=== PATIENT | female | born 1955 | race Caucasian/White ===

== ENCOUNTER 2021-09-02 15:20 | Inpatient (IN) | payer OTHER ==
[~2021-09-02] VITALS: Ht 172.7 cm; Wt 75.3 kg
[2021-09-02 16:00] VITALS: BP 117/68
[2021-09-02] MEDS ORDERED: ZOLPIDEM TARTRATE 5 MG TABLET PO PRN (16:00)
[2021-09-02] MEDS ORDERED: MAGNESIUM HYDROXIDE 30 ML UDC PO PRN (16:00)
[2021-09-02] MEDS ORDERED: ACETAMINOPHEN 325 MG TABLET PO PRN (16:00)
[2021-09-02] MEDS ORDERED: MAG HYDROX/AL HYDROX/SIMETH 30 ML UDC PO PRN (16:00)
[2021-09-02] MEDS ORDERED: LORAZEPAM 0.5 MG TABLET PO PRN (16:00)
--- NOTE | 2021-09-02 16:30 | NUR ---
RN-ADMISSION NOTES ADMITTED A 65 Y.O FEMALE PATIENT FROM [facility]. PATIENT ON 5150 FOR DTS AND GD ADULT. UPON FACE TO FACE ASSESSMENT PATIENT IS ALERT TO NAME ONLY,POOR HISTORIAN MOST OF THE MEDICAL INFORMATION WAS GIVEN BY HER DTR.PATIENT WAS CALM WITH FLAT AFFECT DENIES SI/HI,NO AVH DURING THE ADMISSION PROCESS.PATIENT ORIENTED IN THE UNIT AND UNIT POLICIES. WALKER WAS PROVIDED FOR HER AND INSTRUCTED TO USE TO AMBULATE TO PREVENT FROM FALLS. PATIENT IS UNDER DR. CRANE ( PSYCHIATRIST) AND CAYETANO MILLER ( SUPERVISOR F[employer]IL[employer]ER PROCESSING ) BOTH WAS MADE FINE OF THE ADMISSION. PATIENT REFUSED TO SIGN ADMISSION PAPERS. OFFERED FLU VACCINE BUT PATIENT STATED" I HAD FLU VACCINE 3 WEEKS AGO". FULL BODY ASSESSMENT AND MRSA SWAB DONE AND SEND TO THE LAB.PATIENT WAS PATIENT'S DAUGHTER BRUCE CALIX [phone] MADE AWARE OF THE ADMISSION,PER DTR PATIENT HAD COVID VACCINE 1ST AND 2ND DOSE LAST MAY AND 2020.PATIENT LYING IN BED CALM,NO ACUTE DISTRESS NOTED. WILL CONT. MONITORING FOR SAFETY AND BEHAVIOR Q15 MINS. WILL ENDORSE TO INCOMING NURSE FOR CONTINUITY OF CARE AND ADMISSION .
[2021-09-02] MEDS ORDERED: OLAN20TA3 PO (16:42)
[2021-09-02] MEDS ORDERED: CHOL500052 PO (16:42)
[2021-09-02] MEDS ORDERED: FOLI0.8T3 PO (16:42)
[2021-09-02] MEDS ORDERED: BLOOD SUGAR DIAGNOSTIC 1 EACH STRIP IN ONE (16:45)
[2021-09-02 20:00] VITALS: BP 124/72
[2021-09-02] MEDS: FOLIC ACID 1 MG TABLET PO SCH (21:11)
[2021-09-03 06:31] LABS: BILIRUBIN,URINE NEGATIVE (NEGATIVE); COLOR,URINE YELLOW (YELLOW); LEUKOCYTE ESTERASE ,URINE NEGATIVE (NEGATIVE); NITRITE, URINE NEGATIVE (NEGATIVE); PROTEIN,URINE NEGATIVE (NEGATIVE); UGLUCOSE NEGATIVE (NEGATIVE); UROBILINOGEN,URINE 0.2 EU/dL (0.2)
[2021-09-03 07:37] LABS: ALBUMIN 3.4 g/dL (3.4-5.0); BILIRUBIN,TOTAL 0.2 mg/dL (0.2-1.0); CALCIUM, SERUM 8.7 mg/dL (8.5-10.1); CREATININE 0.9 mg/dL (0.6-1.3); POTASSIUM 3.9 mmol/L (3.5-5.1)
[2021-09-03 07:46] LABS: THYROID STIMULATING HORMONE 2.022 uIU/mL (0.358-3.74)
[2021-09-03 08:00] VITALS: BP 151/79
--- NOTE | 2021-09-03 08:40 | NUR ---
UR Note: Auth# [id number] obtained from Linda Turner with [employer] at [phone] 6 days approved from 09/02/2021 to 09/07/2021 with review due on 09/07/2021 [employer]. assigned is Anne-Marie Dooley Call [phone].
--- NOTE | 2021-09-03 08:40 | NUR ---
WOUND CARE CONSULT: PT PRESENTS WITH SHRIVELED DRY THICKENED SKIN TO LOWER LEGS, PRESENT ON ADMISSION. RECOMMENDATIONS MADE FOR SKIN PROTECTION. DISCUSSED WITH NURSING STAFF. MD IN AGREEMENT WITH PLAN OF CARE.
[2021-09-03] MEDS ORDERED: ERGOCALCIFEROL (VITAMIN D 2) 50,000 UNIT CAPSULE PO SCH (09:00)
[2021-09-03] MEDS: MINERAL OIL/PETROLATUM,WHITE 120 GM JAR TP SCH (09:33)
--- NOTE | 2021-09-03 10:22 | NUR ---
KATLIN Initial Discharge Plan: Patient currently lives at home located [address] [address]; ([phone]). Patient would want to return back home upon discharge. Patient lives with her daughter Devon ([phone]). KATLIN will work with the MD and treatment team to coordinate appropriate discharge.
[2021-09-03] MEDS: DIVALPROEX SODIUM 125 MG CAP.SPRINK PO SCH ×2 (10:28→21:10)
--- NOTE | 2021-09-03 10:36 | NUR ---
KATLIN Family Contact: KATLIN spoke with patient's daughter Dveon ([phone]) to gather collateral. SW discussed treatment plan and discharge plan. Daughter reported that pt was diagnosed with bipolar disorder back in 1997 but never received any treatment until this year of February 2021. Daughter expressed pt started her antipsychotic medications in February and was on Depakote 700mgs HS, Zyprexa 20mgs HS, and Restoril 7.5mgs HS- her doctor decreased 15mgs to 7.5mgs. Daughter expressed ever since pt has been on antipsychotic medications she has developed confusion. KATLIN shared this information with Dr. Ventura. KATLIN educated daughter on [phone]. Daughter is understanding and wants pt to improve. Upon discharge, pt will return back home with daughter.
[2021-09-03 16:00] VITALS: BP 118/63
[2021-09-03 20:36] VITALS: BP 109/74
[2021-09-03] MEDS: FOLIC ACID 1 MG TABLET PO SCH (21:09)
[2021-09-03] MEDS: QUETIAPINE FUMARATE 100 MG TABLET PO SCH (21:18)
[2021-09-03] MEDS: diphenhydrAMINE HCL 50 MG CAPSULE PO PRN (22:31)
--- NOTE | 2021-09-03 22:31 | NUR ---
GPS-RN NOTES: INSOMNIA PATIENT IS UNABLE TO SLEEP. PRN BENADRYL 50MG PO GIVEN ORDERED. WILL CONTINUE TO MONITOR.
[2021-09-04 08:00] VITALS: BP 102/64
[2021-09-04] MEDS: DIVALPROEX SODIUM 125 MG CAP.SPRINK PO SCH ×2 (08:42→21:40)
[2021-09-04] MEDS: MINERAL OIL/PETROLATUM,WHITE 120 GM JAR TP SCH (08:43)
--- NOTE | 2021-09-04 09:00 | NUR ---
RN NOTE- PT CONFUSED WITHDRAWN MED COMPLIANT ORIENTED TO PERSON ONLY
[2021-09-04 16:00] VITALS: BP 110/71
--- NOTE | 2021-09-04 19:45 | NUR ---
GPS RN NOTES RECEIVED ON BED A/O X1-2,CONFUSED,AMBULATE WITH WALKER,DEPRESSED,CONTINENT OF B/B.WILL CONTINUE TO MONITOR BEHAVIOR
[2021-09-04 20:21] VITALS: BP 114/67
[2021-09-04] MEDS: FOLIC ACID 1 MG TABLET PO SCH (21:40)
[2021-09-04] MEDS: diphenhydrAMINE HCL 50 MG CAPSULE PO PRN (21:41)
[2021-09-04] MEDS: QUETIAPINE FUMARATE 100 MG TABLET PO SCH (21:41)
--- NOTE | 2021-09-04 21:41 | NUR ---
GPS RN NOTES MEDICATED WITH BENADRYL 50MG PO FOR SLEEP.
--- NOTE | 2021-09-05 07:05 | NUR ---
GPS RN NOTES N CHANGE IN BEHAVIOR,MED COMPLIANT
[2021-09-05 08:00] VITALS: BP 100/60
[2021-09-05] MEDS: DIVALPROEX SODIUM 125 MG CAP.SPRINK PO SCH ×2 (08:45→21:46)
[2021-09-05] MEDS: MINERAL OIL/PETROLATUM,WHITE 120 GM JAR TP SCH (08:47)
[2021-09-05 16:00] VITALS: BP 108/74
[2021-09-05 20:08] VITALS: BP 116/66
[2021-09-05] MEDS: FOLIC ACID 1 MG TABLET PO SCH (21:46)
[2021-09-05] MEDS: QUETIAPINE FUMARATE 100 MG TABLET PO SCH (21:46)
--- NOTE | 2021-09-06 06:31 | NUR ---
GPS RN NOTE PT A/OX1; SLEEPING AT THIS TIME. TOLERATING R/A WELL. THROUGHOUT NIGHT, PT SLEPT WELL. PT MED COMPLIANT AND PLEASANT TOWARDS PEERS AND STAFF. DENIES PAIN OR DISCOMFORT. ALL NEEDS MET AT THIS TIME. SAFETY MEASURES IN PLACE. PT IN STABLE CONDITION, WILL ENDORSE PLAN OF CARE TO ONCOMING MORNING RN.
--- NOTE | 2021-09-06 07:30 | NUR ---
PT RECEIVED RESTING COMFORTABLE IN BED. NO S/S OR C/O PAIN OR DISTRESS NOTED. SIDE RAILS UP X2, CALL LIGHT LEFT WITHIN REACH. WILL CONTINUE PLAN OF CARE.
[2021-09-06 08:00] VITALS: BP 107/55
[2021-09-06] MEDS: DIVALPROEX SODIUM 125 MG CAP.SPRINK PO SCH ×2 (08:58→21:03)
[2021-09-06] MEDS: MINERAL OIL/PETROLATUM,WHITE 120 GM JAR TP SCH (08:58)
--- NOTE | 2021-09-06 11:40 | NUR ---
Transportation: Patient will be provided with [employer] ([phone]) at 10:30AM. Patient's daughter Devon is aware and will be making the payment. Quoted $140.00 dollars.
--- NOTE | 2021-09-06 11:55 | NUR ---
KATLIN Coordination of Care: Patient will Dr. Gary (Psychiatrist) located at [address] [place] [id number]; ([phone]) ([phone]) on is out of the office until September 09. KATLIN left doctor a voicemail to coordinate appointment.
--- NOTE | 2021-09-06 11:55 | NUR ---
KATLIN Coordination of Care: Patient will follow up with (Detective Lieutenant) Dr. Terry located at [address] [place] [address] Medicine and Internal Medicine [address] [place] [address], [address], [place] [phone] ([phone]) on September 15 at 3PM and will monitor patients psychotropic medications.
--- NOTE | 2021-09-06 12:34 | NUR ---
APPOINTMENT: Patient will Dr. Gary (Psychiatrist) located at [address] [place] [phone]; [phone]) ([phone]) on October 11 at 4:15PM. SW received a call and appointment was set.
[2021-09-06 16:00] VITALS: BP 109/52
--- NOTE | 2021-09-06 18:39 | NUR ---
CHANGE OF SHIFT REPORT PT RESTING COMFORTABLY IN BED. NO S/S OR C/O PAIN OR DISTRESS NOTED. SIDE RAILS UP X2. PT KEPT CLEAN, DRY, AND COMFORTABLE. NO SIGNIFICANT CHANGES SINCE PREVIOUS SHIFT. WILL GIVE REPORT TO TRACY ANNE.
[2021-09-06 20:00] VITALS: BP 110/65
[2021-09-06] MEDS: FOLIC ACID 1 MG TABLET PO SCH (21:03)
[2021-09-06] MEDS: QUETIAPINE FUMARATE 100 MG TABLET PO SCH (21:03)
[2021-09-06] MEDS: diphenhydrAMINE HCL 50 MG CAPSULE PO PRN (23:17)
--- NOTE | 2021-09-06 23:18 | NUR ---
GPS-RN NOTES: INSOMNIA PATIENT IS UNABLE TO SLEEP. PRN BENADRYL 50MG PO GIVEN ORDERED. WILL CONTINUE TO MONITOR.
[2021-09-07 08:00] VITALS: BP 102/60
--- NOTE | 2021-09-07 08:19 | NUR ---
KATLIN Discharge Note: Patient will return back located [address] [place] [address], [place] [address]; ([phone]). Patient will be provided with [facility] ([phone]) at 10:30AM. Patients daughter Devon ([phone]) is aware and agreeable. Patient appears to be alert and oriented x2 and happy to be going back home. Patient denies suicidal or homicidal ideation. Patient denies visual/auditory hallucinations. Patient will follow up with (Conference Services Director) Dr. Terry located at [address] [place] [address] Family Medicine and Internal Medicine [address] [place] [address], [address], [place], [place] [address] ([phone]) on September 15 at 3PM and will monitor patients psychotropic medications. Patient will Dr. Gary (Psychiatrist) located at [address] [place] [phone]; ([phone]) ([phone]) on October 11 at 4:15PM. KATLIN left doctor a voicemail to coordinate appointment. Patient presents with euthymic mood and congruent affect.
[2021-09-07] MEDS: DIVALPROEX SODIUM 125 MG CAP.SPRINK PO SCH (08:36)
[2021-09-07] MEDS: MINERAL OIL/PETROLATUM,WHITE 120 GM JAR TP SCH (08:37)
--- NOTE | 2021-09-07 08:40 | NUR ---
UR Note: Auth# [id number] received a call from Bereket Quinonez ([phone]) requesting clinicals. SW left a voicemail of pt's discharge/clinicals.
--- NOTE | 2021-09-07 11:25 | NUR ---
Patient was discharged home via [facility]. Pt left unit at 11:20AM via w/c to main lobby escorted by [employer] staff. Patients daughter Devon ([phone]) is aware and agreeable of discharge. Patient appears to be alert and oriented x2 and happy to be going back home. Patient denies suicidal or homicidal ideation. Patient denies visual/auditory hallucinations. Educated Pt regarding after care plan (Exit Care) and copies provided. All valuables and belongings returned. Psych meds Rx given. Lower legs pictures taken.
== END 2021-09-07 11:20 | disposition home or self-care (01) | DRG 885 ==
LOC: GPS 15:20
PROVIDERS: ADMIT Psychiatry & Neurology Psychiatry; ATTEND Registered Nurse
DX: F31.64 Bipolar disorder, current episode mixed, severe, with psychotic features (principal); F01.50 Vascular dementia, unspecified severity, without behavioral disturbance, psychotic disturbance, mood disturbance, and anxiety; F23 Brief psychotic disorder; F41.9 Anxiety disorder, unspecified; R62.7 Adult failure to thrive; K64.9 Unspecified hemorrhoids; Z73.6 Limitation of activities due to disability; Z68.25 Body mass index [BMI] 25.0-25.9, adult; G47.9 Sleep disorder, unspecified
CPT/HCPCS: 36415; 80053-TC; 80061-TC; 81001; 82962-TC; 84443-TC; 87081-TC; 97116-TC; 97530-TC; Q0163